=== PATIENT | male | born 2000 | race Caucasian/White ===

== ENCOUNTER 2022-08-18 22:54 | Outpatient (CLI) | payer MEDICAID, SELFPAY | END 2022-08-18 22:55 | disposition home or self-care (01) | LOC: AMB 08-20 14:04 | PROVIDERS: PCP Family Medicine; Visit Provider Family Medicine | DX: R10.9 Unspecified abdominal pain (principal) | CPT/HCPCS: A0425; A0427 ==

== ENCOUNTER 2023-11-14 02:29 | Outpatient (CLI) | payer MEDICAID, SELFPAY | END 2023-11-14 02:30 | disposition home or self-care (01) | LOC: AMB 11-16 11:47 | PROVIDERS: PCP Family Medicine; Visit Provider Family Medicine | DX: S40.812A Abrasion of left upper arm, initial encounter (principal); S90.812A Abrasion, left foot, initial encounter; S80.812A Abrasion, left lower leg, initial encounter; W55.03XA Scratched by cat, initial encounter; Y92.009 Unspecified place in unspecified non-institutional (private) residence as the place of occurrence of the external cause | CPT/HCPCS: A0998 ==

== ENCOUNTER 2025-02-05 13:35 | Outpatient (CLI) | payer MEDICAID, SELFPAY | END 2025-02-05 13:36 | disposition home or self-care (01) | LOC: AMB 02-08 16:14 | PROVIDERS: PCP Family Medicine; Visit Provider Internal Medicine | DX: R45.851 Suicidal ideations (principal) | CPT/HCPCS: A0425; A0427 ==

== ENCOUNTER 2025-02-05 13:53 | Emergency (ER) | payer MEDICAID, SELFPAY ==
[2025-02-05 13:59] VITALS: BP 152/111; PULSE 86; RESP 18; TEMP 36.9; O2SAT 100
--- NOTE | 2025-02-05 14:17 | ED.GENADULT ---
HPI - General Adult General Chief complaint: Psychiatric Problem/Disorder <Immanuel Quintanilla MD - Last Filed: 02/08/25 07:11> Stated complaint: Mental health <Immanuel Quintanilla MD - Last Filed: 02/08/25 07:11> Time Seen by Provider: 02/05/25 13:54 <Immanuel Quintanilla MD - Last Filed: 02/08/25 07:11> History of Present Illness HPI narrative: Patient is a 24-year-old gentleman brought in by police today. Patient states he went and got his paycheck from [facility] and when he returned home the place for at his apartment serving a search warrant. It is believed that the patient as child pornography in his home and on his computer. The exact history of the search warrant is unclear to me however the patient does state that they will be finding child porn on site. Patient upon arrival and when told of the search warrant medially he stated that he was suicidal and they can take him to [facility] head the other prisoners kill him. Patient was brought in to the emergency room in stable medical condition. He denies any significant drug or toxin exposure. He currently takes no home medications. Patient by history has history of asthma but has had no recent symptoms. He also has a history of autism by chart review. <Immanuel Quintanilla MD - Last Filed: 02/08/25 07:11> Related Data Home medications: Home Medications ?Medication ?Instructions ?Recorded ?Confirmed No Known Home Medications 08/11/24 02/05/25 <Immanuel Quintanilla MD - Last Filed: 02/08/25 07:11> Allergies/adverse reactions: Allergies Allergy/AdvReac Type Severity Reaction Status Date / Time Sulfa (Sulfonamide Allergy Unknown Verified 02/05/25 14:07 Antibiotics) spider venom Allergy Verified 02/05/25 14:07 <Immanuel Quintanilla MD - Last Filed: 02/08/25 07:11> Review of Systems Status of ROS: Reports: 10 or more systems reviewed and unremarkable except as noted in History and below <Immanuel Quintanilla MD - Last Filed: 02/08/25 07:11> [facility] Medical History: Medical History (Updated 02/06/25 @ 07:41 by Beena Davis MD) Autism ?F84.0 - Autistic disorder (ICD-10) Exacerbation of asthma ?J45.901 - Unspecified asthma with (acute) exacerbation (ICD-10) <Immanuel Quintanilla MD - Last Filed: 02/08/25 07:11> Surgical History: Surgical History History of placement of ear tubes (10/26/10) ?Z96.22 - Myringotomy tube(s) status (ICD-10) History of adenoidectomy (10/26/10) ?Z90.89 - Acquired absence of other organs (ICD-10) <Immanuel Quintanilla MD - Last Filed: 02/08/25 07:11> Family History: Family History Mother Bipolar depression <Immanuel Quintanilla MD - Last Filed: 02/08/25 07:11> Social History: Social History Narrative: Single. Lives with Mom. Works at [employer]. No tob, alcohol or rec drugs use. Smoking Status: Current every day smoker How often do you have a drink containing alcohol: never AUDIT-C Alcohol total score: 0 Non-prescribed substance use: denies use service: No <Immanuel Quintanilla MD - Last Filed: 02/08/25 07:11> Exam Narrative: Exam Narrative: EXAM GENERAL: Patient appears comfortable and well. EYES: No scleral icterus. ENT: Tympanic membranes and oropharynx normal. THYROID: no thyroid nodules or thyromegaly. LYMPH: No supraclavicular or cervical lymphadenopathy. SKIN: Visible skin seen during exam normal or with benign process only. EXT: No dependent lower extremity pedal edema. HEART: Regular rate and rhythm with no murmurs, rubs, or gallops. LUNGS: Clear to auscultation bilaterally with no crackles or wheezes. ABD: Soft, non tender, non distended. PSYCH: Good eye contact, speech is not pressured. <Immanuel Quintanilla MD - Last Filed: 02/08/25 07:11> Const: Vital Signs, click to edit/add: Vital Signs - 24 hr 02/05/25 13:59 Temperature 98.4 F Pulse Rate [Right Pulse Oximeter] 86 Respiratory Rate 18 Blood Pressure [Ri ght Upper Arm] 152/111 H Pulse Oximetry 100 Oxygen Delivery Me thod Room Air <Immanuel Quintanilla MD - Last Filed: 02/08/25 07:11> Vital Signs, click to edit/add: Vital Signs - 24 hr 02/05/25 13:59 Temperature 98.4 F Pulse Rate [Right Pulse Oximeter] 86 Respiratory Rate 18 Blood Pressure [Ri ght Upper Arm] 152/111 H Pulse Oximetry 100 Oxygen Delivery Me thod Room Air <Gonzalez Dumont DO - Last Filed: 02/05/25 21:38> Vital Signs, click to edit/add: Vital Signs - 24 hr 02/05/25 13:59 Temperature 98.4 F Pulse Rate [Right Pulse Oximeter] 86 Respiratory Rate 18 Blood Pressure [Ri ght Upper Arm] 152/111 H Pulse Oximetry 100 Oxygen Delivery Me thod Room Air <Beena Davis MD - Last Filed: 02/06/25 07:41> Course Course ED Course: Patient seen and examined. He is on a please hold which I have transferred to a 72 hour hold. He is a danger to himself and others at this time in my opinion. Standard toxicology workup including CMP CBC alcohol drug screen salicylate and Tylenol levels are pending. Is currently being cooperative. <Immanuel Quintanilla MD - Last Filed: 02/08/25 07:11> Reevaluation(s) Time of Reevaluation #1: 07:39 <Beena Davis MD - Last Filed: 02/06/25 07:41> Reevaluation #1: Dr. Davis: I assumed care from outgoing day shift partner, No issues overnight. Patient has been resting most of the night, respectful with nursing team. Still voluntary for inpatient treatment. Patient observed on monitors and camera only, no interactions needed. We of gained inpatient acceptance and patient will transfer this morning to [facility] care per [facility]. No additional treatments administered overnight. <Beena Davis MD - Last Filed: 02/06/25 07:41> Vital Signs Vital signs: Initial Vital Signs Temperature 98.4 F 02/05/25 13:59 Temperature Source Temporal Artery Scan 02/05/25 13:59 Pulse Rate 86 02/05/25 13:59 Pulse Rhythm Regular 02/05/25 13:59 Pulse Strength 3+ Normal 02/05/25 13:59 Respiratory Rate 18 02/05/25 13:59 Blood Pressure 152/111 H 02/05/25 13:59 Blood Pressure Mean 124 H 02/05/25 13:59 Blood Pressure Position Sitting 02/05/25 13:59 Pulse Oximetry 100 02/05/25 13:59 Oxygen Delivery Method Room Air 02/05/25 13:59 Vital Signs Temperature 98.4 F 02/05/25 13:59 Pulse Rate 86 02/05/25 13:59 Respiratory Rate 18 02/05/25 13:59 Blood Pressure 152/111 H 02/05/25 13:59 Pulse Oximetry 100 02/05/25 13:59 Oxygen Delivery Method Room Air 02/05/25 13:59 Temperature 98.5 F 02/06/25 14:19 Pulse Rate 80 02/06/25 14:19 Respiratory Rate 20 02/06/25 14:19 Blood Pressure 133/79 02/06/25 14:19 Pulse Oximetry 97 02/06/25 14:19 Oxygen Delivery Method Room Air 02/06/25 14:19 <Immanuel Quintanilla MD - Last Filed: 02/08/25 07:11> Initial Vital Signs Temperature 98.4 F 02/05/25 13:59 Temperature Source Temporal Artery Scan 02/05/25 13:59 Pulse Rate 86 02/05/25 13:59 Pulse Rhythm Regular 02/05/25 13:59 Pulse Strength 3+ Normal 02/05/25 13:59 Respiratory Rate 18 02/05/25 13:59 Blood Pressure 152/111 H 02/05/25 13:59 Blood Pressure Mean 124 H 02/05/25 13:59 Blood Pressure Position Sitting 02/05/25 13:59 Pulse Oximetry 100 02/05/25 13:59 Oxygen Delivery Method Room Air 02/05/25 13:59 Vital Signs Temperature 98.4 F 02/05/25 13:59 Pulse Rate 86 02/05/25 13:59 Respiratory Rate 18 02/05/25 13:59 Blood Pressure 152/111 H 02/05/25 13:59 Pulse Oximetry 100 02/05/25 13:59 Oxygen Delivery Method Room Air 02/05/25 13:59 Temperature 98.5 F 02/06/25 14:19 Pulse Rate 80 02/06/25 14:19 Respiratory Rate 20 02/06/25 14:19 Blood Pressure 133/79 02/06/25 14:19 Pulse Oximetry 97 02/06/25 14:19 Oxygen Delivery Method Room Air 02/06/25 14:19 <Gonzalez Dumont DO - Last Filed: 02/05/25 21:38> Initial Vital Signs Temperature 98.4 F 02/05/25 13:59 Temperature Source Temporal Artery Scan 02/05/25 13:59 Pulse Rate 86 02/05/25 13:59 Pulse Rhythm Regular 02/05/25 13:59 Pulse Strength 3+ Normal 02/05/25 13:59 Respiratory Rate 18 02/05/25 13:59 Blood Pressure 152/111 H 02/05/25 13:59 Blood Pressure Mean 124 H 02/05/25 13:59 Blood Pressure Position Sitting 02/05/25 13:59 Pulse Oximetry 100 02/05/25 13:59 Oxygen Delivery Method Room Air 02/05/25 13:59 Vital Signs Temperature 98.4 F 02/05/25 13:59 Pulse Rate 86 02/05/25 13:59 Respiratory Rate 18 02/05/25 13:59 Blood Pressure 152/111 H 02/05/25 13:59 Pulse Oximetry 100 02/05/25 13:59 Oxygen Delivery Method Room Air 02/05/25 13:59 Temperature 98.5 F 02/06/25 14:19 Pulse Rate 80 02/06/25 14:19 Respiratory Rate 20 02/06/25 14:19 Blood Pressure 133/79 02/06/25 14:19 Pulse Oximetry 97 02/06/25 14:19 Oxygen Delivery Method Room Air 02/06/25 14:19 <Beena Davis MD - Last Filed: 02/06/25 07:41> Medical Decision Making MDM Narrative Medical decision making narrative: Patient signed out to me pending placement. He is on a hold per the police. We are still pending placement at this time. Based upon her staff has told me everything we have learned about the situation has come from the patient and the police have not reached out to us yet. <Gonzalez Dumont DO - Last Filed: 02/05/25 21:38> Lab Data Lab results reviewed: Yes I reviewed the patient's lab results <Beena Davis MD - Last Filed: 02/06/25 07:41> Labs: Lab Results 02/05/25 02/05/25 Range/Units 14:16 14:25 WBC 5.83 (4.50-11.00) K/uL RBC 5.15 (4.30-5.90) m/uL Hgb 15.4 (13.5-17.5) gm/dL Hct 43.6 (37.0-53.0) % MCV 85 (80-100) fL MCH 30 (26-34) pg MCHC 35 (32-36) gm/dL RDW Coeff of Vinh 11.4 L (11.5-15.5) % Plt Count 230 (140-440) K/uL Neut % (Auto) 63.1 (42.0-72.0) % Lymph % (Auto) 28.5 (20-44) % [place] % (Auto) 6.2 (0.0-11.0) % Eos % (Auto) 1.7 (0.0-7.0) % Baso % (Auto) 0.3 (0.0-3.0) % Neut # (Auto) 3.68 (1.7-7.0) K/uL Lymph # (Auto) 1.66 (0.90-2.90) K/uL [place] # (Auto) 0.40 (0.00-0.90) K/UL Eos # (Auto) 0.10 (0.00-0.50) K/uL Baso # (Auto) 0.02 (0.00-0.30) K/uL Abs Immat Gran (auto) 0.01 (0.00-0.30) K/uL Imm/Tot Granulo (auto) 0.2 % Sodium 141 (135-149) mmol/L Potassium 3.8 (3.6-5.1) mmol/L Chloride 103 (96-114) mmol/L Carbon Dioxide 24 (20-32) mmol/L Anion Gap 14 (7-15) mEq/L BUN 10 (5-24) mg/dL Creatinine 0.9 (0.5-1.5) mg/dL Estimated GFR 121 ml/min Glucose 111 (60-115) mg/dL Calcium 10.0 (8.4-10.6) mg/dL Total Bilirubin 1.4 (0.1-1.5) mg/dL AST 23 (12-35) U/L ALT 22 (4-50) U/L Alkaline Phosphatase 55 (40-150) U/L Total Protein 8.7 H (6.0-8.3) g/dL Albumin 5.3 H (3.3-5.0) g/dL Salicylates < 1.0 L (1.0-10) mg/dL Urine Opiates Screen Negative (Negative) Ur Oxycodone Screen Negative (Negative) Urine Methadone Screen Negative (Negative) Acetaminophen < 10.0 (10.0-30.0) ug/mL Ur Barbiturates Screen Negative (Negative) U Tricyclic Antidepress Negative (Negative) Ur Phencyclidine Scrn Negative (Negative) Ur Amphetamines Screen Negative (Negative) U Methamphetamines Scrn Negative (Negative) U Benzodiazepines Scrn Negative (Negative) Urine Cocaine Screen Negative (Negative) U Marijuana (THC) Screen Negative (Negative) Ur Drug Screen Comment See Note Ethyl Alcohol < 0.01 (0.01-0.03) % <Immanuel Quintanilla MD - Last Filed: 02/08/25 07:11> Lab Results 02/05/25 02/05/25 Range/Units 14:16 14:25 WBC 5.83 (4.50-11.00) K/uL RBC 5.15 (4.30-5.90) m/uL Hgb 15.4 (13.5-17.5) gm/dL Hct 43.6 (37.0-53.0) % MCV 85 (80-100) fL MCH 30 (26-34) pg MCHC 35 (32-36) gm/dL RDW Coeff of Vinh 11.4 L (11.5-15.5) % Plt Count 230 (140-440) K/uL Neut % (Auto) 63.1 (42.0-72.0) % Lymph % (Auto) 28.5 (20-44) % [place] % (Auto) 6.2 (0.0-11.0) % Eos % (Auto) 1.7 (0.0-7.0) % Baso % (Auto) 0.3 (0.0-3.0) % Neut # (Auto) 3.68 (1.7-7.0) K/uL Lymph # (Auto) 1.66 (0.90-2.90) K/uL [place] # (Auto) 0.40 (0.00-0.90) K/UL Eos # (Auto) 0.10 (0.00-0.50) K/uL Baso # (Auto) 0.02 (0.00-0.30) K/uL Abs Immat Gran (auto) 0.01 (0.00-0.30) K/uL Imm/Tot Granulo (auto) 0.2 % Sodium 141 (135-149) mmol/L Potassium 3.8 (3.6-5.1) mmol/L Chloride 103 (96-114) mmol/L Carbon Dioxide 24 (20-32) mmol/L Anion Gap 14 (7-15) mEq/L BUN 10 (5-24) mg/dL Creatinine 0.9 (0.5-1.5) mg/dL Estimated GFR 121 ml/min Glucose 111 (60-115) mg/dL Calcium 10.0 (8.4-10.6) mg/dL Total Bilirubin 1.4 (0.1-1.5) mg/dL AST 23 (12-35) U/L ALT 22 (4-50) U/L Alkaline Phosphatase 55 (40-150) U/L Total Protein 8.7 H (6.0-8.3) g/dL Albumin 5.3 H (3.3-5.0) g/dL Salicylates < 1.0 L (1.0-10) mg/dL Urine Opiates Screen Negative (Negative) Ur Oxycodone Screen Negative (Negative) Urine Methadone Screen Negative (Negative) Acetaminophen < 10.0 (10.0-30.0) ug/mL Ur Barbiturates Screen Negative (Negative) U Tricyclic Antidepress Negative (Negative) Ur Phencyclidine Scrn Negative (Negative) Ur Amphetamines Screen Negative (Negative) U Methamphetamines Scrn Negative (Negative) U Benzodiazepines Scrn Negative (Negative) Urine Cocaine Screen Negative (Negative) U Marijuana (THC) Screen Negative (Negative) Ur Drug Screen Comment See Note Ethyl Alcohol < 0.01 (0.01-0.03) % <Gonzalez Land Marrero, DO - Last Filed: 02/05/25 21:38> Lab Results 02/05/25 02/05/25 Range/Units 14:16 14:25 WBC 5.83 (4.50-11.00) K/uL RBC 5.15 (4.30-5.90) m/uL Hgb 15.4 (13.5-17.5) gm/dL Hct 43.6 (37.0-53.0) % MCV 85 (80-100) fL MCH 30 (26-34) pg MCHC 35 (32-36) gm/dL RDW Coeff of Vinh 11.4 L (11.5-15.5) % Plt Count 230 (140-440) K/uL Neut % (Auto) 63.1 (42.0-72.0) % Lymph % (Auto) 28.5 (20-44) % [place] % (Auto) 6.2 (0.0-11.0) % Eos % (Auto) 1.7 (0.0-7.0) % Baso % (Auto) 0.3 (0.0-3.0) % Neut # (Auto) 3.68 (1.7-7.0) K/uL Lymph # (Auto) 1.66 (0.90-2.90) K/uL [place] # (Auto) 0.40 (0.00-0.90) K/UL Eos # (Auto) 0.10 (0.00-0.50) K/uL Baso # (Auto) 0.02 (0.00-0.30) K/uL Abs Immat Gran (auto) 0.01 (0.00-0.30) K/uL Imm/Tot Granulo (auto) 0.2 % Sodium 141 (135-149) mmol/L Potassium 3.8 (3.6-5.1) mmol/L Chloride 103 (96-114) mmol/L Carbon Dioxide 24 (20-32) mmol/L Anion Gap 14 (7-15) mEq/L BUN 10 (5-24) mg/dL Creatinine 0.9 (0.5-1.5) mg/dL Estimated GFR 121 ml/min Glucose 111 (60-115) mg/dL Calcium 10.0 (8.4-10.6) mg/dL Total Bilirubin 1.4 (0.1-1.5) mg/dL AST 23 (12-35) U/L ALT 22 (4-50) U/L Alkaline Phosphatase 55 (40-150) U/L Total Protein 8.7 H (6.0-8.3) g/dL Albumin 5.3 H (3.3-5.0) g/dL Salicylates < 1.0 L (1.0-10) mg/dL Urine Opiates Screen Negative (Negative) Ur Oxycodone Screen Negative (Negative) Urine Methadone Screen Negative (Negative) Acetaminophen < 10.0 (10.0-30.0) ug/mL Ur Barbiturates Screen Negative (Negative) U Tricyclic Antidepress Negative (Negative) Ur Phencyclidine Scrn Negative (Negative) Ur Amphetamines Screen Negative (Negative) U Methamphetamines Scrn Negative (Negative) U Benzodiazepines Scrn Negative (Negative) Urine Cocaine Screen Negative (Negative) U Marijuana (THC) Screen Negative (Negative) Ur Drug Screen Comment See Note Ethyl Alcohol < 0.01 (0.01-0.03) % <Beena Davis MD - Last Filed: 02/06/25 07:41> Discharge Plan Discharge Clinical Impression: Suicidal ideations <Immanuel Quintanilla MD - Last Filed: 02/08/25 07:11> Patient Disposition: Xfer Other <Immanuel Quintanilla MD - Last Filed: 02/08/25 07:11> Prescriptions: No Action No Known Home Medications <Immanuel Quintanilla MD - Last Filed: 02/08/25 07:11> Stand Alone Forms: My[facility] Info Instructions <Immanuel Quintanilla MD - Last Filed: 02/08/25 07:11>
[2025-02-05 14:31] LABS: Hematocrit* 43.6 % (37.0-53.0); Hemoglobin* 15.4 gm/dL (13.5-17.5); Immature Granulocytes Abs Auto 0.01 K/uL (0.00-0.30); Immature Granulocytes Pct Auto 0.2 %; Lymphocytes Absolute Auto 1.66 K/uL (0.90-2.90); Mean Corpuscular HGB Conc 35 gm/dL (32-36); Mean Corpuscular Hemoglobin 30 pg (26-34); Mean Corpuscular Volume 85 fL (80-100); RDW Coefficient of Variation % 11.4 % (11.5-15.5); Red Blood Count* 5.15 m/uL (4.30-5.90); White Blood Count* 5.83 K/uL (4.50-11.00)
[2025-02-05 14:34] LABS: Slide Review Reflex No
[2025-02-05 14:45] LABS: Albumin* 5.3 g/dL (3.3-5.0); Chloride* 103 mmol/L (96-114); Sodium* 141 mmol/L (135-149)
[2025-02-05 14:46] LABS: Potassium* 3.8 mmol/L (3.6-5.1)
[2025-02-05 14:48] LABS: Alanine Aminotransferase* 22 U/L (4-50); Alkaline Phosphatase* 55 U/L (40-150); Anion Gap 14 mEq/L (7-15); Aspartate Amino Transferase* 23 U/L (12-35); Bilirubin Total* 1.4 mg/dL (0.1-1.5); Blood Urea Nitrogen* 10 mg/dL (5-24); Calcium* 10.0 mg/dL (8.4-10.6); Carbon Dioxide* 24 mmol/L (20-32); Creatinine* 0.9 mg/dL (0.5-1.5); Estimated Glomerular Filt Rate 121 ml/min; Glucose* 111 mg/dL (60-115); Total Protein* 8.7 g/dL (6.0-8.3)
[2025-02-05 14:50] LABS: Acetaminophen* < 10.0 ug/mL (10.0-30.0); Ethanol* < 0.01 % (0.01-0.03); Salicylate* < 1.0 mg/dL (1.0-10)
[2025-02-05 14:57] LABS: Cannabinoid Screen Urine Negative (Negative); Methamphetamines Screen Urine Negative (Negative); Tricyclic Antidepressant Urine Negative (Negative)
--- NOTE | 2025-02-05 21:07 | PC.NURSE ---
[facility] declines patient due to acuity of unit
[2025-02-06 07:53] VITALS: BP 120/76; PULSE 64; RESP 16; TEMP 36.6; O2SAT 98
[2025-02-06 14:19] VITALS: BP 133/79; PULSE 80; RESP 20; TEMP 36.9; O2SAT 97
== END 2025-02-06 14:49 | disposition other institution (70) ==
PROVIDERS: Internal Medicine; Emergency Provider Family Medicine; PCP Family Medicine
DX: R45.851 Suicidal ideations (principal)
CPT/HCPCS: 36415; 80053; 80143; 80179; 80306; 82077; 85025; 99283; 99285

== ENCOUNTER 2025-02-06 14:33 | Outpatient (CLI) | payer MEDICAID, SELFPAY | END 2025-02-06 14:34 | disposition home or self-care (01) | LOC: AMB 02-09 16:55 | PROVIDERS: PCP Family Medicine; Visit Provider Family Medicine | DX: R45.851 Suicidal ideations (principal) | CPT/HCPCS: A0425; A0428 ==